=== PATIENT | male | born 1975 | race Caucasian/White ===

== ENCOUNTER 2022-11-16 08:27 | Day surgery (SDC) | payer OTHER ==
[2022-11-16] MEDS ORDERED: Propofol 200 MG/20 ML SDV IV ONE (08:28)
[2022-11-16] MEDS ORDERED: Ondansetron 4 MG/2 ML SDV IVPUSH ONE (08:28)
[2022-11-16] MEDS ORDERED: Glycopyrrolate 0.2 MG/ML 5 ML MDV IV ONE (08:28)
[2022-11-16] MEDS ORDERED: Sodium Chloride 0.9% 10 ML Syringe FLUSH PRN (08:30)
[2022-11-16] MEDS ORDERED: Lactated Ringers 1,000 ML IV SCH (08:30)
[2022-11-16] MEDS ORDERED: Simethicone Drops 40 MG/0.6 ML 30 ML Bottle PO ONE (10:26)
== END 2022-11-16 12:06 | disposition home or self-care (01) ==
LOC: FB.SDS 08:27
PROVIDERS: ATTEND Surgery
DX: Z12.11 Encounter for screening for malignant neoplasm of colon (principal); D12.6 Benign neoplasm of colon, unspecified; F41.9 Anxiety disorder, unspecified; F32.A Depression, unspecified; E78.5 Hyperlipidemia, unspecified; E66.9 Obesity, unspecified; Z91.048 Other nonmedicinal substance allergy status; Z79.899 Other long term (current) drug therapy; Z68.34 Body mass index [BMI] 34.0-34.9, adult
CPT/HCPCS: 00812; 82947; 88305; A9270-GY; J2405; J2704; J3490; J7120